=== PATIENT | female | born 1950 | race Caucasian/White ===

== ENCOUNTER → 2018-09-30 | Outpatient (CLI) | payer MEDICARE | END | disposition home or self-care (01) | LOC: PCVCCLINIC 13:00 | PROVIDERS: ATTEND Internal Medicine Cardiovascular Disease | DX: E78.01 Familial hypercholesterolemia (principal); J96.11 Chronic respiratory failure with hypoxia; R64 Cachexia; J43.9 Emphysema, unspecified; I27.20 Pulmonary hypertension, unspecified; I10 Essential (primary) hypertension; R29.898 Other symptoms and signs involving the musculoskeletal system; Z78.9 Other specified health status; K21.9 Gastro-esophageal reflux disease without esophagitis; Z87.891 Personal history of nicotine dependence; Z88.8 Allergy status to other drugs, medicaments and biological substances | CPT/HCPCS: 36415; 80061; 93005; G0463 ==

== ENCOUNTER → 2018-10-05 | Outpatient (CLI) | payer MEDICARE ==
--- NOTE | 2018-10-05 14:50 | PCVCIMAG ---
APPROVED REPORT Laterality: Bilateral Indications Stenosis Doppler Spectral Velocity Analysis PSV / EDVPSV / EDV ECA (R) 83 / 8 cm/sECA (L) 97 / 9 cm/s dICA (R) 94 / 27 cm/sdICA (L) 69 / 22 cm/s Anand (R) 63 / 19 cm/smICA (L) 69 / 23 cm/s pICA (R) 62 / 14 cm/spICA (L) 67 / 17 cm/s Bulb (R) 58 / 14 cm/sBulb (L) 58 / 16 cm/s dCCA (R) 57 / 13 cm/sdCCA (L) 69 / 16 cm/s mCCA (R) 72 / 12 cm/smCCA (L) 55 / 12 cm/s Vert (R) 59 / 14 cm/sVert (L) 51 / 14 cm/s ICA/CCA 1.65ICA/CCA 1.00 Findings The right carotid bulb has moderate calcified plaque. The right proximal internal carotid artery shows <40% stenosis. The right common carotid artery shows no significant stenosis. The right external carotid artery shows no significant stenosis. The left carotid bulb has moderate calcified plaque. The left proximal internal carotid artery shows <40% stenosis. The left common carotid artery shows no significant stenosis. The left external carotid artery shows no significant stenosis. Conclusion 1. Right internal carotid artery stenosis (<40%) 2. Left internal carotid artery stenosis (<40%) 3. Antegrade vertebral flow
--- NOTE | 2018-10-05 15:34 | PCVCIMAG ---
EXAM: BILATERAL LOWER EXTREMITY ARTERIAL DUPLEX INDICATION: Peripheral Arterial Disease. Leg pain. FINDINGS: Right Leg: The visualized portions of the right external iliac artery are patent. Common femoral and profunda femoral arteries are patent. Superficial femoral artery and popliteal artery are patent. The anterior tibial, peroneal, and posterior tibial arteries are patent. Left Leg: Satisfactory arterial waveforms throughout the common/profunda/superficial femoral, popliteal, anterior tibial, peroneal, and posterior tibial arteries. No flow limiting stenosis seen. 90% stenosis left common iliac artery with segmental occlusion mid left external iliac artery. IMPRESSION: No flow limiting stenosis in the right lower extremity. 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 Segmental occlusion left external iliac artery. No flow limiting left infrainguinal arterial stenoses identified. Incidental note is made of a 0.8 x 1.3 x 3.8 cm right popliteal cyst. LOC:[id number]
--- NOTE | 2018-10-05 16:09 | PCVCIMAG ---
APPROVED REPORT Study performed: 10/05/2018 14:44:41 EXAM: Comprehensive 2D, Doppler, and color-flow Echocardiogram Patient Location: Echo lab Status: routine BSA: 1.38 HR: 83 bpmBP: 104/60 mmHg Rhythm: NSR w/ PACs Other Information Study Quality: Adequate Technically limited study due to lung disease. Risk Factors: Cardiac Risk Factors: HTN Indications COPD Pulmonary Hypertension Dyspnea 2D Dimensions IVSd: 9.03 (7-11mm) LVDd: 24.06 mm PWd: 9.41 (7-11mm) LVDs: 16.46 (25-40mm) Left Atrium: 31.99 (27-40mm) Aortic Root: 24.42 mm LV Single Plane 4CH: 64.93 % LV Single Plane 2CH: 40.12 % Volumes Left Atrial Volume (Systole) Single Plane 4CH: 38.18 mLSingle Plane 2CH: 45.18 mL LA ESV Index: 33.00 mL/m2 Aortic Valve AoV Peak Jose.: 1.27 m/s AO Peak Gr.: 6.42 mmHgLVOT Max P.75 mmHg LVOT Max V: 0.66 m/s Mitral Valve E/A Ratio: 0.8 MV Decel. Time: 284.71 ms MV E Max Jose.: 1.11 m/s MV A Jose.: 1.32 m/s IVRT: 107.27 ms Pulmonary Valve PV Peak Jose.: 0.77 m/sPV Peak Gr.: 2.40 mmHg Pulmonary Vein P Vein S: 0.19 m/sP Vein A: 0.32 m/s P Vein D: 0.33 m/sP Vein A Dur.: 134.9 msec P Vein S/D Ratio: 0.58 Tricuspid Valve TR Peak Jose.: 3.15 m/s TR Peak Gr.: 39.80 mmHg Left Ventricle The left ventricle is normal size. There is normal LV segmental wall motion. There is normal left ventricular wall thickness. Left ventricular systolic function is normal. The left ventricular ejection fraction is within the normal range. LVEF is 55%. Grade I - abnormal relaxation pattern. Right Ventricle The right ventricle is normal size. The right ventricular systolic function is normal. Atria The left atrium size is normal. The right atrium size is normal. Aortic Valve The aortic valve is normal in structure. No aortic regurgitation is present. There is no aortic valvular stenosis. Mitral Valve The mitral valve is normal in structure. Moderate mitral regurgitation. No evidence of mitral valve stenosis. Tricuspid Valve The tricuspid valve is normal in structure. Moderate tricuspid regurgitation to 50 mmHg. Pulmonic Valve The pulmonary valve is normal in structure. There is no pulmonic valvular regurgitation. Great Vessels The aortic root is normal in size. IVC is normal in size and collapses >50% with inspiration. Pericardium There is no pericardial effusion. There is no pleural effusion. <Conclusion> The left ventricle is normal size. LVEF is 55%. Grade I - abnormal relaxation pattern. The right ventricle is normal size. The left atrium size is normal. The aortic valve is normal in structure. Moderate mitral regurgitation. Moderate tricuspid regurgitation to 50 mmHg. The aortic root is normal in size. There is no pericardial effusion.
== END | disposition home or self-care (01) ==
LOC: PCVCIMAG 13:43
PROVIDERS: ATTEND Internal Medicine Cardiovascular Disease
DX: I08.1 Rheumatic disorders of both mitral and tricuspid valves (principal); I65.23 Occlusion and stenosis of bilateral carotid arteries; I73.9 Peripheral vascular disease, unspecified; R06.00 Dyspnea, unspecified; J43.9 Emphysema, unspecified; I27.20 Pulmonary hypertension, unspecified; M79.604 Pain in right leg; M79.605 Pain in left leg; Z87.891 Personal history of nicotine dependence; Z88.8 Allergy status to other drugs, medicaments and biological substances
CPT/HCPCS: 93306; 93880; 93925

== ENCOUNTER → 2018-11-11 | Outpatient (CLI) | payer MEDICARE | END | disposition home or self-care (01) | LOC: PCVCCLINIC 13:49 | PROVIDERS: ATTEND Nuclear Medicine Nuclear Cardiology | DX: I73.9 Peripheral vascular disease, unspecified (principal); I77.9 Disorder of arteries and arterioles, unspecified; I27.20 Pulmonary hypertension, unspecified; J44.1 Chronic obstructive pulmonary disease with (acute) exacerbation; E78.00 Pure hypercholesterolemia, unspecified; K21.9 Gastro-esophageal reflux disease without esophagitis; Z88.8 Allergy status to other drugs, medicaments and biological substances; Z87.891 Personal history of nicotine dependence; Z72.89 Other problems related to lifestyle; Z79.899 Other long term (current) drug therapy | CPT/HCPCS: G0463 ==